=== PATIENT | female | born 1975 | race Caucasian/White ===

== ENCOUNTER 2017-12-13 08:39 | Emergency (ER) | payer OTHER ==
[2017-12-13 08:43] VITALS: BP 129/78; PULSE 81; RESP 20; TEMP 97.8; O2SAT 100
--- NOTE | 2017-12-13 09:25 | C.PDOC ---
History Of Present Illness 42 year old female presents to ED for evaluation of toothache for the last 5 days, but more painful since last night. She noticed swelling to face this morning. Patient is about 9 weeks and has been taking Tylenol. She does not have a dentist. Denies any fever, bleeding or drainage. Time Seen by Provider: 12/13/17 09:00 Chief Complaint (Nursing): Dental Pain History Per: Patient History/Exam Limitations: no limitations Onset/Duration Of Symptoms: Days (5) Current Symptoms Are (Timing): Still Present Quality: Positive for: Aching, "Pain" Recent travel outside of the [place]: No Additional History Per: Patient Past Medical History Reviewed: Historical Data, Nursing Documentation, Vital Signs Vital Signs: Last Vital Signs Temp 97.8 F 12/13/17 08:40 Pulse 81 12/13/17 08:40 Resp 20 12/13/17 08:40 BP 129/78 12/13/17 08:40 Pulse Ox 100 12/13/17 09:55 Surgical History: Family History: States: Unknown Family Hx - Social History Hx Alcohol Use: No Hx Substance Use: No - Immunization History Hx Tetanus Toxoid Vaccination: No Hx Influenza Vaccination: No Hx Pneumococcal Vaccination: No Review Of Systems Except As Marked, All Systems Reviewed And Found Negative. Constitutional: Negative for: Fever, Chills ENT: Positive for: Mouth Pain (toothache), Mouth Swelling (swelling to face) Physical Exam - Physical Exam Appears: Non-toxic, No Acute Distress Skin: Normal Color, Warm, Dry Head: Atraumatic, Normacephalic Oral Mucosa: Moist, No Drooling Tongue: Normal Appearing Lips: Normal Appearing Teeth: Tender To Palpation (left wisdom tooth tender ) Gingiva: No Ulceration, Swelling (gingival swelling surrounding left wisdom tooth), No Bleeding, No Abscess (no drainage) Throat: Normal, No Erythema, No Exudate Neck: Normal ROM, Supple Extremity: Normal ROM, No Deformity Neurological/Psych: Oriented x3, Normal Speech ED Course And Treatment O2 Sat by Pulse Oximetry: 100 (RA) Pulse Ox Interpretation: Normal Medical Decision Making Medical Decision Making: Patient has no signs of dental abscess at this time. wisdom tooth painful with gingival swelling. Will treat with Pen VK and Tylenol. Patient advised to take medications, Rx given and to follow up with dental clinic. Disposition Counseled Patient/Family Regarding: Diagnosis, Need For Followup, Rx Given - Disposition Referrals: [facility] [Outside] Disposition: HOME/ ROUTINE Disposition Time: 09:23 Condition: GOOD Additional Instructions: Murdo Tylenol 1-2 pastillas segn sea necesario para el dolor Vania antibiticos Seguimiento con clnica dental Prescriptions: Acetaminophen [Tylenol Extra Strength] 500 mg PO Q8 PRN #30 tablet PRN Reason: Pain, Moderate (4-7) Penicillin VK [Penicillin VK Tab] 250 mg PO QID #28 tab Instructions: Dental Pain (DC) Forms: [employer] (Tajik) Print Language: VIETNAMESE - Clinical Impression Clinical Impression: Toothache - 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 - Scribe Statement The provider has reviewed the documentation as recorded by the Scribe Halima Zaldivar All medical record entries made by the Shamaibe were at my direction and personally dictated by me. I have reviewed the chart and agree that the record accurately reflects my personal performance of the history, physical exam, medical decision making, and the department course for this patient. I have also personally directed, reviewed, and agree with the discharge instructions and disposition.
== END 2017-12-13 09:37 | disposition home or self-care (01) ==
LOC: C.ER 08:39
DX: K08.89 Other specified disorders of teeth and supporting structures (principal)

== ENCOUNTER 2018-01-03 12:29 | Emergency (ER) | payer OTHER ==
[2018-01-03 14:06] LABS: BASO % 0.4 % (0.0-2.0); EOS # 0.2 K/uL (0.0-0.7); HEMOGLOBIN 13.2 g/dL (11.0-16.0); LYMPH # 2.2 K/uL (1.0-4.3); LYMPH % 26.1 % (20.0-40.0); MEAN CELL VOLUME 89.1 fL (81.0-99.0); MEAN CORPUSCULAR HEMOGLOBIN 30.7 pg (27.0-31.0); MEAN CORPUSCULAR HGB CONC 34.5 g/dL (33.0-37.0); MEAN PLATELET VOLUME 8.2 fL (7.2-11.7); MONO # 0.5 K/uL (0.0-0.8); MONO % 6.3 % (0.0-10.0); NEUT # 5.5 K/uL (1.8-7.0); NEUT % 65.2 % (50.0-75.0); RBC 4.29 Mil/uL (3.80-5.20); RED CELL DISTRIBUTION WIDTH 14.3 % (11.5-14.5); WHITE BLOOD COUNT 8.5 K/uL (4.8-10.8)
[2018-01-03 14:17] LABS: HCG,QUALITATIVE URINE POSITIVE (NEGATIVE)
[2018-01-03 14:20] LABS: ALBUMIN 4.2 g/dL (3.5-5.0); ALT/SGPT 21 U/L (9-52); AST/SGOT 25 U/L (14-36); BLOOD UREA NITROGEN 7 mg/dL (7-17); GFR AFRICAN-AMERICAN > 60; GFR NON-AFRICAN AMERICAN > 60
[2018-01-03 14:23] LABS: SQUAMOUS EPITHIAL 1 /hpf (0-5); URINE BILIRUBIN NEGATIVE (NEGATIVE); URINE BLOOD 3+ (NEGATIVE); URINE CLARITY SLHAZY (Clear); URINE COLOR Straw (YELLOW); URINE GLUCOSE (UA) NORMAL (Normal); URINE LEUKOCYTE ESTERASE NEG Leu/uL (Negative); URINE PROTEIN NEGATIVE (NEGATIVE); URINE UROBILINOGEN NORMAL mg/dL (0.2-1.0)
--- NOTE | 2018-01-03 14:34 | C.PDOC ---
History Of Present Illness 42yo female, EGA of 10 weeks by date, presents to ED for evaluation of vaginal bleeding since yesterday. Patient states the bleeding since this morning has been similar to her menstrual cycle and she reports mild pelvic pain as well. She denies any fever, chills, abdominal pain, nausea, vomiting or diarrhea. She has not had any ultrasounds as of yet. No other complaints. Time Seen by Provider: 01/03/18 13:10 Chief Complaint (Nursing): Abdominal Pain History Per: Patient History/Exam Limitations: no limitations Onset/Duration Of Symptoms: Days Current Symptoms Are (Timing): Still Present Location Of Pain/Discomfort: Suprapubic Abnormal Vaginal Bleeding: Yes : 3 Para: 2 Past Medical History Reviewed: Historical Data, Nursing Documentation, Vital Signs Vital Signs: Last Vital Signs Temp 97.8 F 01/03/18 12:40 Pulse 72 01/03/18 12:40 Resp 20 01/03/18 12:40 BP 112/76 01/03/18 12:40 Pulse Ox 100 01/03/18 16:22 - Medical History PMH: No Chronic Diseases Surgical History: Family History: States: No Known Family Hx, Unknown Family Hx - Social History Hx Alcohol Use: No Hx Substance Use: No - Immunization History Hx Tetanus Toxoid Vaccination: No Hx Influenza Vaccination: No Hx Pneumococcal Vaccination: No Review Of Systems Except As Marked, All Systems Reviewed And Found Negative. Constitutional: Negative for: Fever, Chills Cardiovascular: Negative for: Chest Pain Respiratory: Negative for: Shortness of Breath Gastrointestinal: Negative for: Nausea, Vomiting Genitourinary: Positive for: Vaginal Bleeding, Pelvic Pain Physical Exam - Physical Exam Appears: Non-toxic, No Acute Distress, Other (obese) Skin: Normal Color, Warm, Dry Head: Atraumatic, Normacephalic Eye(s): bilateral: Normal Inspection, PERRL, EOMI Oral Mucosa: Moist Neck: Normal ROM, Supple Chest: Symmetrical Cardiovascular: Rhythm Regular Respiratory: Normal Breath Sounds, No Wheezing Gastrointestinal/Abdominal: Normal Exam, Soft, No Tenderness Back: Normal Inspection, No CVA Tenderness Extremity: Normal ROM, No Pedal Edema, No Deformity Neurological/Psych: Oriented x3 ED Course And Treatment - Laboratory Results Result Diagrams: 01/03/18 13:56 01/03/18 13:56 Lab Interpretation: Abnormal (QHCG 5224 LOW, O+) Urine POC: Positive O2 Sat by Pulse Oximetry: 100 (RA) Pulse Ox Interpretation: Normal Medical Decision Making Medical Decision Making: Impression: Vaginal bleeding in setting of Plan: -- Labs -- Beta-HCG Quantitative -- US Transvaginal low QHCG and misformed early , c/w missed AB Disposition Doctor Will See Patient In The: Office Counseled Patient/Family Regarding: Studies Performed, Diagnosis - Disposition Disposition: HOME/ ROUTINE Disposition Time: 16:32 Condition: GOOD Forms: [employer] (Argentine) - Clinical Impression Clinical Impression: Vaginal bleeding affecting early - Scribe Statement The provider has reviewed the documentation as recorded by the Scribe (Tamiko Das) Provider Attestation: All medical record entries made by the Scribe were at my direction and personally dictated by me. I have reviewed the chart and agree that the record accurately reflects my personal performance of the history, physical exam, medical decision making, and the department course for this patient. I have also personally directed, reviewed, and agree with the discharge instructions and disposition.
--- NOTE | 2018-01-03 16:27 | US ---
EXAM: US , Transvaginal CLINICAL HISTORY: 42 years old, female; Signs and symptoms; Lmp or gestational age (in weeks): Bleeding; Antepartum complications; ; Additional info: Approx 10 weeks preg, bleeding TECHNIQUE: Real-time transvaginal obstetrical ultrasound of the maternal pelvis and a first trimester with image documentation. Transvaginal imaging was used for better evaluation of the fetus and adnexa. COMPARISON: No relevant prior studies available. FINDINGS: Gestation: There is a single intrauterine gestational sac measuring 2.6 x 1.5 x 1.7 cm for a mean sac diameter 1.91 cm for a menstrual age of 6 weeks and 2 days. A yolk sac is present. No pole is seen. No cardiac activity is noted. Placenta/amniotic fluid: There is a subchorionic fluid collection noted along the inferior aspect of the sac measuring 0.98 x 0.7 x 1.4 cm. Uterus/cervix: The uterus measures 10.9 x 6 x 5.9 cm. the cervix measures 4.2 cm in length and is closed. No myometrial mass. Ovaries: Not seen as separate structures. Free fluid: No free fluid. IMPRESSION: 1. Single intrauterine with an estimated menstrual age of 6 weeks and 2 days. There is no pole or cardiac activity. Serial beta hCG measurement and or followup ultrasound might be considered to confirm the presence of a live 2. Small subchorionic fluid collection.. EXAM: US Pelvis Complete, Transabdominal US Pelvis, Transvaginal US Duplex Arterial/Venous of the Pelvis, Complete EXAM DATE/TIME: Exam ordered 01/03/2018 1:17 PM CLINICAL HISTORY: 42 years old, female; Signs and symptoms; Lmp or gestational age (in weeks): Bleeding; Antepartum complications; ; Additional info: Approx 10 weeks preg, bleeding TECHNIQUE: Real-time transabdominal and transvaginal pelvic ultrasound (complete) with image documentation. Transvaginal imaging was used for better evaluation of the endometrium and adnexa. Real-time duplex ultrasound scan of the arterial and venous flow of the pelvis with color Doppler flow and spectral waveform analysis. COMPARISON: No relevant prior studies available. FINDINGS: Uterus/cervix: The uterus measures 12.2 x 4.4 x 7.1 cm. the cervix measures 4.4 cm in length and appears closed. Normal endometrial stripe thickness. No myometrial mass. Right ovary: The right ovary measures 3.5 x 3.2 x 3.4 cm. Blood flow is seen in the right ovary on color Doppler examination. Left ovary: The left ovary measures 3 x 2.1 x 2.3 cm. Blood flow is seen in the left ovary on color Doppler examination. Free fluid: No free fluid. Bladder: Unremarkable as visualized. Wall is normal thickness for degree of distention. Other findings: There is an intrauterine gestational sac measuring 2.4 x 2.1 x 3.3 cm for a mean sac diameter of 2.6 cm for a menstrual age of 7 weeks and 2 days. A pole was not seen. A yolk sac was not seen. IMPRESSION: 1. Single intrauterine gestational sac. No yolk sac or pole was seen. A yolk sac is seen on the transvaginal portion of the study. Please see report for transvaginal ultrasound
[2018-01-03 16:45] VITALS: BP 114/75; PULSE 71; RESP 18; TEMP 98; O2SAT 99
== END 2018-01-03 16:45 | disposition home or self-care (01) ==
LOC: C.ER 12:29
DX: O20.9 Hemorrhage in early pregnancy, unspecified (principal); Z3A.01 Less than 8 weeks gestation of pregnancy

== ENCOUNTER 2018-01-06 19:36 | Emergency (ER) | payer OTHER ==
[2018-01-06 20:50] LABS: BASO # 0.1 K/uL (0.0-0.2); BASO % 0.5 % (0.0-2.0); EOS # 0.2 K/uL (0.0-0.7); EOS % 1.2 % (0.0-4.0); HEMOGLOBIN 12.6 g/dL (11.0-16.0); LYMPH # 1.9 K/uL (1.0-4.3); LYMPH % 13.3 % (20.0-40.0); MEAN CELL VOLUME 88.1 fL (81.0-99.0); MEAN CORPUSCULAR HEMOGLOBIN 29.8 pg (27.0-31.0); MEAN CORPUSCULAR HGB CONC 33.9 g/dL (33.0-37.0); MEAN PLATELET VOLUME 7.8 fL (7.2-11.7); MONO # 0.6 K/uL (0.0-0.8); MONO % 4.1 % (0.0-10.0); NEUT # 11.4 K/uL (1.8-7.0); NEUT % 80.9 % (50.0-75.0); RBC 4.21 Mil/uL (3.80-5.20); RED CELL DISTRIBUTION WIDTH 14.4 % (11.5-14.5); WHITE BLOOD COUNT 14.1 K/uL (4.8-10.8)
[2018-01-06 20:53] LABS: HCG,QUALITATIVE URINE POSITIVE (NEGATIVE)
[2018-01-06 21:00] LABS: SQUAMOUS EPITHIAL 6 /hpf (0-5); URINE BILIRUBIN NEGATIVE (NEGATIVE); URINE BLOOD 3+ (NEGATIVE); URINE CLARITY Hazy (Clear); URINE COLOR Red (YELLOW); URINE GLUCOSE (UA) NORMAL (Normal); URINE LEUKOCYTE ESTERASE TRACE Leu/uL (Negative); URINE PROTEIN 2+ mg/dL (NEGATIVE); URINE UROBILINOGEN NORMAL mg/dL (0.2-1.0)
[2018-01-06 21:02] LABS: ALB/GLOB RATIO 1.1 (1.0-2.1); ALBUMIN 4.1 g/dL (3.5-5.0); GFR AFRICAN-AMERICAN > 60; GFR NON-AFRICAN AMERICAN > 60
[2018-01-06 21:03] LABS: ALT/SGPT 21 U/L (9-52); AST/SGOT 28 U/L (14-36); BLOOD UREA NITROGEN 7 mg/dL (7-17)
--- NOTE | 2018-01-06 21:08 | C.PDOC ---
History Of Present Illness 42yo female, EGA of 10weeks presents to ED with complaints of vaginal bleeding and lower abdominal pain. Patient was seen in this ER on 01/03/18 with similar complaints, had an US, which showed a single live IUP with no pole or cardiac activity. Patient currently denies any fever, chills, chest pain , shortness of breath and offers no other medical complaints. Time Seen by Provider: 01/06/18 20:15 Chief Complaint (Nursing): Female Genitourinary History Per: Patient History/Exam Limitations: no limitations Onset/Duration Of Symptoms: Days Current Symptoms Are (Timing): Still Present Abnormal Vaginal Bleeding: Yes : 3 Para: 2 Past Medical History Reviewed: Historical Data, Nursing Documentation, Vital Signs Vital Signs: Last Vital Signs Temp 98.5 F 01/06/18 21:25 Pulse 66 01/06/18 21:25 Resp 20 01/06/18 21:25 BP 124/77 01/06/18 21:25 Pulse Ox 100 01/06/18 21:25 - Medical History PMH: No Chronic Diseases Denies: Chronic Kidney Disease Surgical History: Family History: States: Unknown Family Hx - Social History Hx Alcohol Use: No Hx Substance Use: No - Immunization History Hx Tetanus Toxoid Vaccination: No Hx Influenza Vaccination: No Hx Pneumococcal Vaccination: No Review Of Systems Except As Marked, All Systems Reviewed And Found Negative. Constitutional: Negative for: Fever, Chills Cardiovascular: Negative for: Chest Pain Respiratory: Negative for: Shortness of Breath Gastrointestinal: Negative for: Abdominal Pain Genitourinary: Positive for: Vaginal Bleeding Physical Exam - Physical Exam Appears: Non-toxic, No Acute Distress Skin: Normal Color, Warm, Dry Head: Atraumatic, Normacephalic Eye(s): bilateral: Normal Inspection, PERRL Neck: Normal ROM, Supple Chest: Symmetrical Cardiovascular: Rhythm Regular Respiratory: Normal Breath Sounds, No Wheezing Gastrointestinal/Abdominal: Normal Exam, Soft, No Tenderness Back: Normal Inspection Extremity: Normal ROM, No Pedal Edema Neurological/Psych: Oriented x3 ED Course And Treatment - Laboratory Results Result Diagrams: 01/06/18 20:46 01/06/18 20:46 Medical Decision Making Medical Decision Making: Impression: Vaginal bleeding in setting of Plan: -- Labs -- US Pelvis -- US Transvaginal Time: 2202 EXAM: US , Transvaginal EXAM DATE/TIME: 01/06/2018 8:30 PM CLINICAL HISTORY: 42 years old, female; Signs and symptoms; Lmp or gestational age (in weeks): 2-6 -18; Other: Vb; ; Additional info: Vag bleeding TECHNIQUE: Real-time transvaginal obstetrical ultrasound of the maternal pelvis and a first trimester with image documentation. Transvaginal imaging was used for better evaluation of the fetus and adnexa. COMPARISON: US - PREG 1ST TRIMESTER/OB TV 2018-01-03 14:18 FINDINGS: Gestation: There is irregularly shaped gestational sac.Gestational sac has mean diameter 27.2 mm.A yolk sac is present, internal diameter measures approximately 4 mm. there is a subchorionic hemorrhage. There is heterogeneous avascular debris in the endometrial canal inferior to the gestational sac. Uterus: Uterus measures approximately 11.4 x 5.5 x 6.5 cm. Cervix measures approximately 4.4 cm. Ovaries: Left ovary measures approximately 2.7 x 1.3 x 2.6 cm. Right ovary measures approximately 2.8 x 2.6 x 2.8 cm. No mass. nt to us can be arranged. Page 2 of 2 Free fluid: No free fluid. IMPRESSION: Irregularly shaped gestational sac with yolk sac, no pole, sac size suggests a 7 week 4 day gestation; heterogeneous avascular debris in the endometrial canal suggesting clot Correlation with serial beta-hCG levels advised Prior study also showed gestational sac with yolk sac but no pole Time: 2234 Beta-HGC levels reviewed 01/03: 5224.00 01/06: 2243.50 Patient informed of labs and US findings, informed threatened . Currently pending pelvic exam. Time: 2308 Pelvic exam shows os closed, blood through the os. Patient was given choice of coming back in 2 days or to see private OBGYN and states she will follow up here. Patient to be discharged home with pain medications and instructions for follow up. Disposition Counseled Patient/Family Regarding: Diagnosis, Need For Followup, Rx Given - [facility]position [facility] Disposition: HOME/ ROUTINE Disposition Time: 23:11 Condition: GOOD Additional Instructions: return for worsening pain and vaginal bleeding Prescriptions: Naproxen [Naprosyn] 500 mg PO BID 5 Days #10 tablet Instructions: Threatened Miscarriage (DC) Forms: [facility] (Frisian), [employer] (Montenegrin), General Discharge Instructions, Gen Discharge Inst Montenegrin Print Language: ROMANSH - Clinical Impression Clinical Impression: Vaginal bleeding affecting early , Threatened - Scribe Statement The provider has reviewed the documentation as recorded by the Scribe (Tamiko Das) Provider Attestation: All medical record entries made by the Scribe were at my direction and personally dictated by me. I have reviewed the chart and agree that the record accurately reflects my personal performance of the history, physical exam, medical decision making, and the department course for this patient. I have also personally directed, reviewed, and agree with the discharge instructions and disposition.
--- NOTE | 2018-01-06 22:01 | US ---
EXAM: US , Transvaginal EXAM DATE/TIME: 01/06/2018 8:30 PM CLINICAL HISTORY: 42 years old, female; Signs and symptoms; Lmp or gestational age (in weeks): 2-6-18; Other: Vb; ; Additional info: Vag bleeding TECHNIQUE: Real-time transvaginal obstetrical ultrasound of the maternal pelvis and a first trimester with image documentation. Transvaginal imaging was used for better evaluation of the fetus and adnexa. COMPARISON: US - PREG 1ST TRIMESTER/OB TV 2018-01-03 14:18 FINDINGS: Gestation: There is irregularly shaped gestational sac.Gestational sac has mean diameter 27.2 mm.A yolk sac is present, internal diameter measures approximately 4 mm. there is a subchorionic hemorrhage. There is heterogeneous avascular debris in the endometrial canal inferior to the gestational sac. . Uterus: Uterus measures approximately 11.4 x 5.5 x 6.5 cm. Cervix measures approximately 4.4 cm. Ovaries: Left ovary measures approximately 2.7 x 1.3 x 2.6 cm. Right ovary measures approximately 2.8 x 2.6 x 2.8 cm. No mass. Free fluid: No free fluid. IMPRESSION: Irregularly shaped gestational sac with yolk sac, no pole, sac size suggests a 7 week 4 day gestation; heterogeneous avascular debris in the endometrial canal suggesting clot Correlation with serial beta-hCG levels advised Prior study also showed gestational sac with yolk sac but no pole
[2018-01-06 23:27] VITALS: BP 110/70; PULSE 75; RESP 18; TEMP 98.7; O2SAT 98
== END 2018-01-06 23:35 | disposition home or self-care (01) ==
LOC: C.ER 19:36
DX: O20.0 Threatened abortion (principal); Z3A.01 Less than 8 weeks gestation of pregnancy

== ENCOUNTER 2018-01-07 12:16 | Emergency (ER) | payer OTHER ==
[2018-01-07 12:28] VITALS: TEMP 98.4; O2SAT 100
[2018-01-07] MEDS ORDERED: Sodium Chloride 0.9% 500 ML IV ONE ×2 (12:57→13:02)
[2018-01-07 13:14] LABS: BASO % 0.2 % (0.0-2.0); EOS # 0.2 K/uL (0.0-0.7); HEMOGLOBIN 12.2 g/dL (11.0-16.0); LYMPH # 4.1 K/uL (1.0-4.3); LYMPH % 26.4 % (20.0-40.0); MEAN CELL VOLUME 88.5 fL (81.0-99.0); MEAN CORPUSCULAR HEMOGLOBIN 30.7 pg (27.0-31.0); MEAN CORPUSCULAR HGB CONC 34.7 g/dL (33.0-37.0); MEAN PLATELET VOLUME 8.2 fL (7.2-11.7); MONO # 0.9 K/uL (0.0-0.8); MONO % 5.5 % (0.0-10.0); NEUT # 10.4 K/uL (1.8-7.0); NEUT % 66.9 % (50.0-75.0); RBC 3.99 Mil/uL (3.80-5.20); RED CELL DISTRIBUTION WIDTH 14.2 % (11.5-14.5); WHITE BLOOD COUNT 15.5 K/uL (4.8-10.8)
[2018-01-07 13:26] LABS: PROTHROMBIN TIME 11.7 SECONDS (9.7-12.2)
[2018-01-07 13:31] LABS: ALB/GLOB RATIO 1.2 (1.0-2.1); ALBUMIN 4.3 g/dL (3.5-5.0); ALT/SGPT 15 U/L (9-52); AST/SGOT 27 U/L (14-36); BLOOD UREA NITROGEN 8 mg/dL (7-17); CALCIUM 9.1 mg/dl (8.6-10.4); GFR AFRICAN-AMERICAN > 60; GFR NON-AFRICAN AMERICAN > 60; LIPASE 194 U/L (23-300)
[2018-01-07] MEDS ORDERED: Morphine 4 MG/ML VIAL ONE (13:48)
[2018-01-07 13:53] VITALS: RESP 18
--- NOTE | 2018-01-07 14:53 | C.PDOC ---
History Of Present Illness 42 y/o female presents to the ER complaining of vaginal bleeding and abdominal pain. Patient states that she was seen in [facility] ER 15 hours ago for vaginal bleeding in . Patient had an US which showed an irregular gestational sac and she was discharged home. She has returned to the ER for increasing abdominal pain. Denies having nausea and vomiting. Time Seen by Provider: 01/07/18 12:37 Chief Complaint (Nursing): Abdominal Pain History Per: Patient History/Exam Limitations: no limitations Onset/Duration Of Symptoms: Days Current Symptoms Are (Timing): Still Present Severity: Moderate Past Medical History Reviewed: Historical Data, Nursing Documentation, Vital Signs Vital Signs: Last Vital Signs Temp 98.4 F 01/07/18 15:45 Pulse 76 01/07/18 15:45 Resp 18 01/07/18 15:45 BP 100/60 01/07/18 15:45 Pulse Ox 100 01/07/18 16:55 - Medical History PMH: Denies: Chronic Kidney Disease Surgical History: Family History: States: No Known Family Hx - Social History Hx Alcohol Use: No Hx Substance Use: No - Immunization History Hx Tetanus Toxoid Vaccination: No Hx Influenza Vaccination: No Hx Pneumococcal Vaccination: No Review Of Systems Except As Marked, All Systems Reviewed And Found Negative. Constitutional: Negative for: Fever, Chills Gastrointestinal: Positive for: Abdominal Pain. Negative for: Nausea, Vomiting Genitourinary: Positive for: Vaginal Bleeding Physical Exam - Physical Exam Appears: Non-toxic, No Acute Distress Skin: Normal Color, Warm, Dry Head: Atraumatic, Normacephalic Eye(s): bilateral: Normal Inspection Nose: Normal Oral Mucosa: Moist Neck: Supple Chest: Symmetrical Cardiovascular: Rhythm Regular Respiratory: Normal Breath Sounds, No Rales, No Rhonchi, No Wheezing Gastrointestinal/Abdominal: Bowel Sounds ((+) bowel sounds), Soft, Tenderness ( diffuse lower abdominal tenderness), No Guarding, No Rebound Neurological/Psych: Oriented x3, Normal Speech ED Course And Treatment - Laboratory Results Result Diagrams: 01/07/18 13:10 01/07/18 13:10 O2 Sat by Pulse Oximetry: 100 (RA) Pulse Ox Interpretation: Normal Medical Decision Making Medical Decision Making: Assessment: Abdominal Pain Plan: --Labs --UA --Mophine IV --Zofran IV --IV Fluids --Toradol IV Updates: Case discussed with Dr.R Zaldivar, FIRE SAFETY MANAGER. Dr. Zaldivar evaluated patient and performed a pelvic exam. Patient has been diagnosed with threatened .Dr. Zaldivar instructed for patient to be discharged with prescriptions for Doxycycline and Methergine and follow up in medical clinic. Disposition Discussed With : Giovanna Zaldivar Doctor Will See Patient In The: ED Counseled Patient/Family Regarding: Studies Performed, Diagnosis, Need For Followup, Rx Given - Disposition Referrals: [facility] [Outside] Disposition: HOME/ ROUTINE Disposition Time: 16:05 Condition: STABLE Additional Instructions: you were seen by Dr. Terrie Zaldivar and discharged by Dr. Zaldivar take medications as she prescribed follow up with clinic as discussed within 2 days return to ER if symptoms worsens or progress Prescriptions: Acetaminophen/Codeine [Tylenol/Codeine 300 MG/30 MG] 1 tab PO Q6H PRN #12 tab PRN Reason: Pain, Severe (8-10) Doxycycline Monohydrate 100 mg PO BID #20 tablet Methylergonovine Maleate [Methergine] 0.2 mg PO Q6 #4 tablet Instructions: Threatened Miscarriage (DC) Forms: Gen Discharge Inst I[employer], [employer] (Ivorian) Print Language: MONTSERRATIAN - Clinical Impression Clinical Impression: Threatened - Scribe Statement The provider has reviewed the documentation as recorded by the Shamaibnani Lopez Provider Attestation: All medical record entries made by the Shamaibnani were at my direction and personally dictated by me. I have reviewed the chart and agree that the record accurately reflects my personal performance of the history, physical exam, medical decision making, and the department course for this patient. I have also personally directed, reviewed, and agree with the discharge instructions and disposition.
[2018-01-07 15:46] VITALS: BP 100/60; PULSE 76
[2018-01-07 16:39] LABS: URINE BACTERIA OCC (<OCC); URINE BILIRUBIN NEGATIVE (NEGATIVE); URINE CLARITY Hazy (Clear); URINE COLOR Red (YELLOW); URINE GLUCOSE (UA) 1+ mg/dL (Normal); URINE LEUKOCYTE ESTERASE NEG Leu/uL (Negative); URINE PROTEIN 2+ mg/dL (NEGATIVE); URINE UROBILINOGEN NORMAL mg/dL (0.2-1.0)
[2018-01-07 16:40] LABS: URINE BLOOD 3+ (NEGATIVE)
== END 2018-01-07 16:36 | disposition home or self-care (01) ==
LOC: C.ER 12:16
DX: O20.0 Threatened abortion (principal); Z3A.01 Less than 8 weeks gestation of pregnancy
CPT/HCPCS: 80053; 81001; 83690; 84702; 85025; 85610; 85730; 96374; 96375; 99285; J1885; J2270; J2405; J7040